=== PATIENT | female | born 1970 | race American Indian/Alaskan Native ===

== ENCOUNTER 2016-04-11 04:38 | Emergency (ER) | payer MEDICARE ==
[2016-04-11] MEDS ORDERED: TYLENOL ONE (04:44)
[2016-04-11] MEDS ORDERED: TYLENOL PO ONE (04:45)
[2016-04-11] MEDS ORDERED: MOTRIN PO ONE (05:54)
--- NOTE | 2016-04-11 06:01 | Emergency Department Report ---
- General Chief Complaint: Upper Respiratory Infection Stated Complaint: FLU SYMPTOMS Time Seen by Provider: 04/11/16 05:49 Source: patient, EMS Mode of arrival: Ambulatory Limitations: No Limitations - History of Present Illness Initial Comments: Patient complains of cough productive of phlegm, runny nose and congestion, fever, throat pain, headache, sharp stomach pain (pointing to epigastric region ) that comes on only when she coughs. States symptoms ongoing for 3 days. Also reports left earache without loss of decreased hearing, drainage. Denies chills, nausea, vomiting, diarrhea, pain, dysuria, urgency, frequency, vaginal pain or discomfort, with, tingling, numbness. Denies chest pain or discomfort, wheezing, SOB. States boyfriend recently released from the hospital from infected tooth and neck infection. Patient has a history of hypertension and hasn't taken her medicine in a while, she said. She denies signs and symptoms of elevated blood pressure. LMP 03/22/16 - Related Data Previous Rx's Medication Instructions Recorded Last Taken Type Ibuprofen [Motrin] 800 mg PO Q8HR PRN #15 tablet 04/11/16 Unknown Rx guaiFENesin/DEXTROMETHORPHAN 10 ml PO Q4HR PRN #1 liquid 04/11/16 Unknown Rx [Diabetic Tussin Dm Max-Str Liq] Allergies Allergy/AdvReac Type Severity Reaction Status Date / Time No Known Allergies Allergy Verified 04/17/15 16:09 ED Review of Systems ROS: Stated complaint: FLU SYMPTOMS Other details as noted in HPI Comment: All other systems reviewed and negative ED Past Medical Hx - Past Medical History Previous Medical History?: Yes Hx Hypertension: Yes Additional medical history: Shoulder Dislocation - Surgical History Past Surgical History?: Yes Additional Surgical History: Right wrist surgery. x2 - Social History Smoking Status: Never Smoker Substance Use Type: None - Medications Home Medications: Home Medications Medication Instructions Recorded Confirmed Last Taken Type Ibuprofen [Motrin] 800 mg PO Q8HR PRN #15 tablet 04/11/16 Unknown Rx guaiFENesin/DEXTROMETHORPHAN 10 ml PO Q4HR PRN #1 liquid 04/11/16 Unknown Rx [Diabetic Tussin Dm Max-Str Liq] ED Physical Exam - General Limitations: No Limitations General appearance: alert, in no apparent distress - Head Head exam: Present: atraumatic, normocephalic - Eye Eye exam: Present: normal appearance, PERRL, EOMI. Absent: scleral icterus, conjunctival injection, periorbital swelling, periorbital tenderness - ENT ENT exam: Present: normal orophraynx, mucous membranes moist, TM's normal bilaterally, normal external ear exam - Neck Neck exam: Present: normal inspection, full ROM, lymphadenopathy (non-tender). Absent: tenderness, meningismus - Respiratory Respiratory exam: Present: normal lung sounds bilaterally. Absent: respiratory distress, wheezes, rales, rhonchi, stridor, chest wall tenderness, accessory muscle use, decreased breath sounds, prolonged expiratory - Cardiovascular Cardiovascular Exam: Present: regular rate, normal rhythm - GI/Abdominal GI/Abdominal exam: Present: soft, normal bowel sounds. Absent: distended, tenderness, guarding, rebound, rigid - Extremities Exam Extremities exam: Present: normal inspection, full ROM, normal capillary refill. Absent: tenderness, pedal edema, joint swelling - Back Exam Back exam: Present: normal inspection, full ROM. Absent: tenderness, CVA tenderness (R), CVA tenderness (L) - Neurological Exam Neurological exam: Present: alert, oriented X3, normal gait, reflexes normal. Absent: motor sensory deficit - Psychiatric Psychiatric exam: Present: normal affect, normal mood - Skin Skin exam: Present: warm, dry, intact, normal color. Absent: rash, cyanosis, diaphoretic, erythema, petechiae, pallor, abrasion, ecchymosis ED Course Vital Signs 04/11/16 04:51 Temperature 101.1 F H Pulse Rate 98 H Respiratory 18 Rate Blood Pressure 153/103 O2 Sat by Pulse 96 Oximetry ED Medical Decision Making - Medical Decision Making 45-year-old female with acute bronchitis and URI. Patient stable. She will be DC'd on appropriate medication (see prescriptions). Patient education education , follow-up/referral, return instructions provided. Patient also instructed to follow-up immediately with her PCP for her elevated blood pressure. She is instructed on the importance of good BP control in preventing heart attack and stroke. She verbalized understanding and is agreeable to plan. Critical care attestation.: If time is entered above; I have spent that time in minutes in the direct care of this critically ill patient, excluding procedure time. ED Disposition Clinical Impression: Bronchitis URI (upper respiratory infection) Qualifiers: URI type: unspecified URI Qualified Code(s): J06.9 - Acute upper respiratory infection, unspecified Disposition: DISCHARGED TO HOME OR SELFCARE Is pt being admited?: No Does the pt Need Aspirin: No Condition: Stable Instructions: Acute Bronchitis (ED), Upper Respiratory Infection (ED) Additional Instructions: Follow instructions for care. Use medications as prescribed. Follow-up with your primary care provider for follow-up. As discussed, follow-up immediately with your primary care provider for your elevated blood pressure and possible restart of your blood pressure medications. As not doing so in a timely manner could result in heart attack or stroke. Return to ED for new or worsening conditions. Prescriptions: guaiFENesin/DEXTROMETHORPHAN [Diabetic Tussin Dm Max-Str Liq] 10 ml PO Q4HR PRN #1 liquid PRN Reason: Cough Ibuprofen [Motrin] 800 mg PO Q8HR PRN #15 tablet PRN Reason: pain/fever Referrals: PRIMARY CARE, [Primary Care Provider] - 2-3 Days [facility] [Outside] - 2-3 Days
[2016-04-11 06:43] VITALS: BP 126/84
== END 2016-04-11 06:44 | disposition home or self-care (01) ==
LOC: ED 04:38
DX: J06.9 Acute upper respiratory infection, unspecified (principal); J40 Bronchitis, not specified as acute or chronic; R51 Headache; R10.13 Epigastric pain; H92.02 Otalgia, left ear; I10 Essential (primary) hypertension
CPT/HCPCS: 99283

== ENCOUNTER 2018-03-06 14:54 | Emergency (ER) | payer MEDICARE ==
[2018-03-06 15:14] VITALS: BP 149/85
[2018-03-06] MEDS ORDERED: DECADRON IM ONE (16:57)
[2018-03-06] MEDS ORDERED: TRIMOX PO ONE (16:57)
--- NOTE | 2018-03-06 17:00 | Emergency Department Report ---
Minor Respiratory - HPI Chief Complaint: Upper Respiratory Infection Stated Complaint: CHECK UP Time Seen by Provider: 03/06/18 16:54 Duration: 3 Days Pain Location: Facial, Throat, Nose, Ear Severity: mild Minor Respiratory: Yes Sore Throat, Yes Able to Tolerate Fluids, No Rhinorrhea, No Ear Pain, No Cough, No Sick Contacts, No Hemoptysis, No Chest Pain, No Shortness of Breath, No Fever Other History: 47 yo comes to ER via EMS with cold like symptoms ED Review of Systems ROS: Stated complaint: CHECK UP Other details as noted in HPI Comment: All other systems reviewed and negative Constitutional: see HPI. denies: chills Eyes: as per HPI. denies: eye pain, eye discharge, vision change ENT: as per HPI, ear pain, throat pain. denies: dental pain, hearing loss Respiratory: see HPI Cardiovascular: denies: palpitations Endocrine: denies: see HPI Gastrointestinal: denies: nausea Genitourinary: denies: urgency Musculoskeletal: denies: back pain Skin: denies: lesions Psychiatric: denies: anxiety ED Past Medical Hx - Past Medical History Previous Medical History?: Yes Hx Hypertension: Yes Additional medical history: Multiple shoulder dislocations - Surgical History Past Surgical History?: Yes Additional Surgical History: . shoulder surgery - Social History Smoking Status: Current Every Day Smoker Substance Use Type: None - Medications Home Medications: Home Medications Medication Instructions Recorded Confirmed Last Taken Type Lisinopril [Zestril] 40 mg PO QDAY 11/29/13 01/01/15 11/18/13 History amLODIPine [Norvasc] 10 mg PO DAILY 11/29/13 01/01/15 11/18/13 History Amoxicillin 500 mg PO BID #20 capsule 03/06/18 Unknown Rx Fluticasone [Flonase] 1 spray NS QDAY #1 bottle 03/06/18 Unknown Rx predniSONE [Deltasone] 20 mg PO DAILY #5 tablet 03/06/18 Unknown Rx Minor Respiratory Exam - Exam General: Vital signs noted. No distress. Alert and acting appropriately. HEENT: Yes Pharyngeal Erythema, Yes Moist Mucous Membranes, No Pharyngeal Exudates, No Rhinorrhea, No Conjuctival Injection, No Frontal Tenderness, No Maxillary Tenderness Ear: Neither TM Bulge, Neither TM Erythema, Neither EAC Pain, Neither EAC Discharge Neck: Yes Supple, No Adenopathy Lungs: Yes Good Air Exchange, No Wheezes, No Ronchi, No Stridor Heart: Yes Regular, No Murmur Abdomen: Yes Normal Bowel Sounds, No Tenderness, No Peritoneal Signs Neurologic: Alert and oriented, no deficits. Musculoskeletal: Unremarkable. ED Course Vital Signs 03/06/18 15:11 Temperature 99.6 F Pulse Rate 90 Respiratory 22 Rate Blood Pressure 149/85 O2 Sat by Pulse 98 Oximetry ED Medical Decision Making - Medical Decision Making non toxic afebrile taking po amublatory - Differential Diagnosis urti Critical care attestation.: If time is entered above; I have spent that time in minutes in the direct care of this critically ill patient, excluding procedure time. ED Disposition Clinical Impression: URTI (acute upper respiratory infection), Sinusitis, Bronchitis Disposition: TO HOME OR SELFCARE Is pt being admited?: No Does the pt Need Aspirin: No Condition: Stable Instructions: Upper Respiratory Infection (ED), Acute Bronchitis (ED) Additional Instructions: REST HYDRATE WELL MOTRIN AND TYLENOL FOR PAIN OR FEVER MEDS ORDERED TODAY FOLLOW UP PCP IN 48 HOURS IF PERSISTS Prescriptions: Amoxicillin 500 mg PO BID #20 capsule Fluticasone [Flonase] 1 spray NS QDAY #1 bottle predniSONE [Deltasone] 20 mg PO DAILY #5 tablet Referrals: PRIMARY CAREMD [Primary Care Provider] - 3-5 Days BJ PEREZ MD [Staff Physician] - 3-5 Days Forms: Work/School Release Form(ED) Time of Disposition: 16:58
[2018-03-06] MEDS ORDERED: IBUPROFEN PO ONE (17:04)
== END 2018-03-06 17:37 | disposition home or self-care (01) ==
LOC: MERGE 14:54 → ED 14:54
DX: J06.9 Acute upper respiratory infection, unspecified (principal); J40 Bronchitis, not specified as acute or chronic; J32.9 Chronic sinusitis, unspecified
CPT/HCPCS: 96372; 99283; J1100

== ENCOUNTER 2018-08-10 11:34 | Emergency (ER) | payer MEDICARE ==
[2018-08-10] MEDS ORDERED: CATAPRES PO ONE (12:33)
[2018-08-10] MEDS ORDERED: FIORICET PO ONE (12:33)
--- NOTE | 2018-08-10 12:36 | Emergency Department Report ---
ED Headache HPI - General Chief Complaint: High BP Stated Complaint: HEADACHE/HYPERTENSION Time Seen by Provider: 08/10/18 12:14 - History of Present Illness Initial Comments: 47-year-old female presents to ED with complaint of headache. Patient reported right temporal headache 2 days. The patient states she checked her blood pressure and it was elevated with systolic BP in the 190s in 200s. Patient reports she has been out of her BP meds 2 months. PCP: Juan Paul Timing/Duration: other (2 days) Quality: moderate Recent Head Trauma: no recent headache/trauma Associated Symptoms: denies: facial pain, fever/chills, loss of consciousness, nausea/vomiting, sinus infection, stiff neck, vision changes Allergies/Adverse Reactions: Allergies No Known Allergies Allergy (Verified 04/17/15 16:09) Home Medications: Ambulatory Orders Ibuprofen [Motrin] 800 mg PO Q8HR PRN #15 tablet 04/11/16 guaiFENesin/DEXTROMETHORPHAN [Diabetic Tussin Dm Max-Str Liq] 10 ml PO Q4HR PRN #1 liquid 04/11/16 hydroCHLOROthiazide [HCTZ] 25 mg PO QDAY #30 tablet 08/10/18 ED Review of Systems ROS: Stated complaint: HEADACHE/HYPERTENSION Other details as noted in HPI Comment: All other systems reviewed and negative Constitutional: denies: chills, fever Respiratory: denies: shortness of breath Cardiovascular: denies: chest pain Gastrointestinal: denies: nausea, vomiting Neurological: headache. denies: weakness, numbness, paresthesias, abnormal gait ED Past Medical Hx - Past Medical History Previous Medical History?: Yes Hx Hypertension: Yes Additional medical history: Shoulder Dislocation - Surgical History Past Surgical History?: Yes Additional Surgical History: Right wrist surgery. x2 - Social History Smoking Status: Current Every Day Smoker Substance Use Type: None - Medications Home Medications: Home Medications Medication Instructions Recorded Confirmed Last Taken Type Ibuprofen [Motrin] 800 mg PO Q8HR PRN #15 tablet 04/11/16 Unknown Rx guaiFENesin/DEXTROMETHORPHAN 10 ml PO Q4HR PRN #1 liquid 04/11/16 Unknown Rx [Diabetic Tussin Dm Max-Str Liq] hydroCHLOROthiazide [HCTZ] 25 mg PO QDAY #30 tablet 08/10/18 Unknown Rx ED Physical Exam - General Limitations: No Limitations General appearance: alert, in no apparent distress - Head Head exam: Present: atraumatic, normocephalic - Eye Eye exam: Present: normal appearance, PERRL, EOMI - ENT ENT exam: Present: mucous membranes moist - Neck Neck exam: Present: normal inspection, full ROM. Absent: tenderness, meningismus - Respiratory Respiratory exam: Present: normal lung sounds bilaterally. Absent: respiratory distress - Cardiovascular Cardiovascular Exam: Present: regular rate, normal rhythm - GI/Abdominal GI/Abdominal exam: Present: soft. Absent: distended, tenderness - Extremities Exam Extremities exam: Present: normal inspection - Neurological Exam Neurological exam: Present: alert, oriented X3, CN II-XII intact. Absent: motor sensory deficit - Psychiatric Psychiatric exam: Present: normal affect, normal mood - Skin Skin exam: Present: warm, dry, intact, normal color ED Course Vital Signs 08/10/18 08/10/18 08/10/18 11:59 12:01 12:44 Temperature 98.4 F Pulse Rate 71 75 Respiratory 18 18 Rate Blood Pressure 179/110 Blood Pressure 191/107 [Right] O2 Sat by Pulse 100 100 Oximetry ED Medical Decision Making - Medical Decision Making - clonidine, fioricet given - RICKETTS and BP improved - no neuro deficits - unable to recall what medication previously took for BP, will prescribe HCTZ - outpt f/u advised Critical care attestation.: If time is entered above; I have spent that time in minutes in the direct care of this critically ill patient, excluding procedure time. ED Disposition Clinical Impression: Hypertension, Acute headache Disposition: DC- TO HOME OR SELFCARE Is pt being admited?: No Condition: Stable Instructions: Hypertension (ED) Prescriptions: hydroCHLOROthiazide [HCTZ] 25 mg PO QDAY #30 tablet Referrals: [facility] [Provider Group] - 3-5 Days Time of Disposition: 14:00
[2018-08-10 14:29] VITALS: BP 140/90
== END 2018-08-10 14:10 | disposition home or self-care (01) ==
LOC: ED 11:34
DX: I10 Essential (primary) hypertension (principal); R51 Headache; F17.200 Nicotine dependence, unspecified, uncomplicated
CPT/HCPCS: 99282

== ENCOUNTER 2019-01-14 23:18 | Emergency (ER) | payer MEDICARE ==
--- NOTE | 2019-01-15 00:51 | Emergency Department Report ---
- General Chief Complaint: Upper Respiratory Infection Stated Complaint: VERÓNICA Time Seen by Provider: 01/15/19 00:26 Source: EMS Mode of arrival: Stretcher Limitations: No Limitations - History of Present Illness Initial Comments: Patient is a 48-year-old female presents emergency room with complaints of URI symptoms that began a week ago. She has associated dry persistent cough, itchy dry throat, rhinorrhea, congestion. She denies any ear pain, productive cough, shortness of breath, any other symptoms. She states that she just started taking DayQuil today. She states she has tried drinking warm tea and taking Gould's [id number]. She denies any fever. She states she has a past medical history of hypertension and ran out of her medication but states she is planning to see her primary care doctor this week to have refills completed. she denies any allergies medications - Related Data Home Medications Medication Instructions Recorded Confirmed Last Taken Lisinopril [Zestril] 40 mg PO QDAY 11/29/13 01/01/15 11/18/13 amLODIPine [Norvasc] 10 mg PO DAILY 11/29/13 01/01/15 11/18/13 Previous Rx's Medication Instructions Recorded Last Taken Type Ibuprofen [Motrin] 800 mg PO Q8HR PRN #15 tablet 04/11/16 Unknown Rx guaiFENesin/DEXTROMETHORPHAN 10 ml PO Q4HR PRN #1 liquid 04/11/16 Unknown Rx [Diabetic Tussin Dm Max-Str Liq] Amoxicillin 500 mg PO BID #20 capsule 03/06/18 Unknown Rx Fluticasone [Flonase] 1 spray NS QDAY #1 bottle 03/06/18 Unknown Rx predniSONE [Deltasone] 20 mg PO DAILY #5 tablet 03/06/18 Unknown Rx hydroCHLOROthiazide [HCTZ] 25 mg PO QDAY #30 tablet 08/10/18 Unknown Rx Cetirizine HCl [Zyrtec 10mg tab] 10 mg PO DAILY #14 tablet 01/15/19 Unknown Rx Fluticasone [Flonase] 1 spray NS QDAY #1 bottle 01/15/19 Unknown Rx Nystas/Diphen/Xyl Visc/Mylanta 30 ml MM TID PRN #480 ml 01/15/19 Unknown Rx [Magic Mouthwash] guaiFENesin/DEXTROMETHORPHAN 1 each PO Q8HR PRN #14 capsule 01/15/19 Unknown Rx [Coricidin Hbp Chest Damion-Cough] Allergies Allergy/AdvReac Type Severity Reaction Status Date / Time No Known Allergies Allergy Verified 09/21/18 08:18 ED Review of Systems ROS: Stated complaint: VERÓNICA Other details as noted in HPI Comment: All other systems reviewed and negative ED Past Medical Hx - Past Medical History Previous Medical History?: Yes Hx Hypertension: Yes Additional medical history: Multiple shoulder dislocations - Surgical History Past Surgical History?: Yes Additional Surgical History: . shoulder surgery - Social History Smoking Status: Never Smoker Substance Use Type: None - Medications Home Medications: Home Medications Medication Instructions Recorded Confirmed Last Taken Type Lisinopril [Zestril] 40 mg PO QDAY 11/29/13 01/01/15 11/18/13 History amLODIPine [Norvasc] 10 mg PO DAILY 11/29/13 01/01/15 11/18/13 History Ibuprofen [Motrin] 800 mg PO Q8HR PRN #15 tablet 04/11/16 Unknown Rx guaiFENesin/DEXTROMETHORPHAN 10 ml PO Q4HR PRN #1 liquid 04/11/16 Unknown Rx [Diabetic Tussin Dm Max-Str Liq] Amoxicillin 500 mg PO BID #20 capsule 03/06/18 Unknown Rx Fluticasone [Flonase] 1 spray NS QDAY #1 bottle 03/06/18 Unknown Rx predniSONE [Deltasone] 20 mg PO DAILY #5 tablet 03/06/18 Unknown Rx hydroCHLOROthiazide [HCTZ] 25 mg PO QDAY #30 tablet 08/10/18 Unknown Rx Cetirizine HCl [Zyrtec 10mg tab] 10 mg PO DAILY #14 tablet 01/15/19 Unknown Rx Fluticasone [Flonase] 1 spray NS QDAY #1 bottle 01/15/19 Unknown Rx Nystas/Diphen/Xyl Visc/Mylanta 30 ml MM TID PRN #480 ml 01/15/19 Unknown Rx [Magic Mouthwash] guaiFENesin/DEXTROMETHORPHAN 1 each PO Q8HR PRN #14 capsule 01/15/19 Unknown Rx [Coricidin Hbp Chest Damion-Cough] ED Physical Exam - General Limitations: No Limitations General appearance: alert, in no apparent distress - Head Head exam: Present: atraumatic, normocephalic - Eye Eye exam: Present: normal appearance - ENT ENT exam: Present: normal orophraynx, mucous membranes moist, TM's normal bilaterally, normal external ear exam, other (pale boggy turbinates with clear nasal discharge) - Respiratory Respiratory exam: Present: normal lung sounds bilaterally. Absent: respiratory distress, wheezes, rales, rhonchi, stridor, chest wall tenderness, accessory muscle use, decreased breath sounds, prolonged expiratory - Cardiovascular Cardiovascular Exam: Present: regular rate, normal rhythm, normal heart sounds. Absent: systolic murmur, diastolic murmur, rubs, gallop - Neurological Exam Neurological exam: Present: alert, oriented X3 - Psychiatric Psychiatric exam: Present: normal affect, normal mood - Skin Skin exam: Present: warm, dry, intact ED Course Vital Signs 01/14/19 01/14/19 01/15/19 23:26 23:37 01:15 Temperature 98.8 F 98.8 F Pulse Rate 91 H 83 Respiratory 18 18 Rate Blood Pressure 180/108 180/108 211/121 O2 Sat by Pulse 100 Oximetry ED Medical Decision Making - Medical Decision Making Patient is a 48-year-old female presents emergency room with complaints of URI symptoms that began a week ago. She has associated dry persistent cough, itchy dry throat, rhinorrhea, congestion. She denies any ear pain, productive cough, shortness of breath, any other symptoms. She states that she just started taking DayQuil today. She states she has tried drinking warm tea and taking Gould's [id number]. She denies any fever. She states she has a past medical history of hypertension and ran out of her medication but states she is planning to see her primary care doctor this week to have refills completed. she denies any allergies medications. intial vitals with elevated BP, otherwise st able. on exam: pale boggy turbinates with clear nasal discharge, breath sounds are clear bilaterally without wheezes rales or rhonchi. Symptoms and examination consistent with viral URI. Discussed supportive care with patient. Patient given prescriptions for symptomatic relief. advised pt to Please take medication as prescribed. May use a humidifier, drink warm tea, eat warm soup broth, do warm saltwater gargles. Follow-up with a primary care doctor in the next 2-3 days. Please discuss with your primary care doctor the elevation in your blood pressure and get your medications refilled by your primary care physician. take your blood pressure three times a day. eat a low sodium diet, incorporate daily exercise. Return to the emergency room for any new or worsening symptoms. I was informed by social worker psychiatric that on patients discharge vitals that her blood pressure was elevated to 211/121. I ordered 10 mg of amlodipine and advised social worker psychiatric to repeat vitals. I was advised by social worker psychiatric that after he gave the patient medication she stated that she could not wait here and she had to go home. Logistics Administrator had patient signed AMA form and discussed risk associated with leaving AGAINST MEDICAL ADVICE. - Differential Diagnosis PNA, URI, viral syndrome, influenza, sinusitis, otitis, strep pharyngitis Critical care attestation.: If time is entered above; I have spent that time in minutes in the direct care of this critically ill patient, excluding procedure time. ED Disposition Clinical Impression: Upper respiratory infection Qualifiers: URI type: unspecified URI Qualified Code(s): J06.9 - Acute upper respiratory infection, unspecified Disposition: OP ADMIT IP TO THIS HOSP Is pt being admited?: No Does the pt Need Aspirin: No Condition: Stable Instructions: Upper Respiratory Infection (ED) Additional Instructions: Please take medication as prescribed. May use a humidifier, drink warm tea, eat warm soup broth, do warm saltwater gargles. Follow-up with a primary care doctor in the next 2-3 days. Please discuss with your primary care doctor the elevation in your blood pressure and get your medications refilled by your primary care physician. take your blood pressure three times a day. eat a low sodium diet, incorporate daily exercise. Return to the emergency room for any new or worsening symptoms. Prescriptions: guaiFENesin/DEXTROMETHORPHAN [Coricidin Hbp Chest Damion-Cough] 1 each PO Q8HR PRN #14 capsule PRN Reason: cough Fluticasone [Flonase] 1 spray NS QDAY #1 bottle Nystas/Diphen/Xyl Visc/Mylanta [Magic Mouthwash] 30 ml MM TID PRN #480 ml PRN Reason: sore throat Cetirizine HCl [Zyrtec 10mg tab] 10 mg PO DAILY #14 tablet Referrals: your, primary care doctor [Other] - 2-3 Days Forms: AMA Form, Accompanied Note, Work/School Release Form(ED) Time of Disposition: 00:44 Print Language: ESTONIAN
[2019-01-15] MEDS ORDERED: amLODIPine 10 MG TAB ONE (01:13)
[2019-01-15] MEDS ORDERED: amLODIPine 5 MG TAB PO ONE (01:13)
[2019-01-15 01:15] VITALS: BP 211/121
== END 2019-01-15 01:22 | disposition admitted as inpatient to this hospital (09) ==
LOC: ED 23:18
DX: J06.9 Acute upper respiratory infection, unspecified (principal); Z79.899 Other long term (current) drug therapy; Z79.1 Long term (current) use of non-steroidal anti-inflammatories (NSAID)
CPT/HCPCS: 99283

== ENCOUNTER 2019-04-08 15:26 | Outpatient (CLI) | payer MEDICARE ==
--- NOTE | 2019-04-08 17:12 | XRay Report ---
Right knee 2 views INDICATION: Right knee pain following injury IMPRESSION: Moderate to severe tricompartmental degenerative changes of the right knee with small kne e effusion. Signer Name: Travis Murguia MD Signed: 04/08/2019 5:08 PM Workstation Name: [id number]
== END 2019-04-08 15:27 | disposition home or self-care (01) ==
LOC: XRAY 15:26
PROVIDERS: ATTEND Orthopaedic Surgery
DX: M17.11 Unilateral primary osteoarthritis, right knee (principal); M25.461 Effusion, right knee

== ENCOUNTER 2019-11-07 08:56 | Day surgery (SDC) | payer MEDICARE ==
[~2019-11-07 08:56] MED LIST: ceFAZolin/STERILE WATER 2 GM/20 ML SYRINGE IV NR
[2019-11-07] MEDS ORDERED: BACTERIOSTATIC SODIUM CHLORIDE 0.9% 30 ML VIAL INFILTRATI ONE (09:23)
--- NOTE | 2019-11-07 09:36 | Anesthesia Day of Surgery ---
Anesthesia Day of Surgery - Day of Surgery Patient Examined: Yes Patient H&P Reviewed: Yes Patient is NPO: Yes
--- NOTE | 2019-11-07 09:38 | Anesthesia Consultation ---
Anesthesia Consult and Med Hx Date of service: 11/07/19 - Airway Anesthetic Teeth Evaluation: Good ROM Head & Neck: Adequate Mental/Hyoid Distance: Adequate Mallampati Class: Class III Intubation Access Assessment: Probably Good - Pre-Operative Health Status ASA Pre-Surgery Classification: ASA3 Proposed Anesthetic Plan: General - Pulmonary Hx Smoking: Yes (CIGARETTES 1 P Q 2-3 WEEKS) Hx Asthma: No (+2FS) COPD: No Hx Pneumonia: No Hx Sleep Apnea: No (JENNIFER PRE SCREEN HIGH RISK) - Cardiovascular System Hx Hypertension: Yes Hx Heart Attack/AMI: No Hx Pacemaker: No Hx Internal Defibrillator: No Hx Heart Murmur: No - Central Nervous System Hx Back Pain: Yes (LOWER) Hx Psychiatric Problems: Yes (CLAUSTROPHOBIC/Anxiety) - Gastrointestinal Hx Ulcer: No - Endocrine Hx End Stage Renal Disease: No Hx Cirrhosis: No Hx Liver Disease: No - Hematic Hx Anemia: Yes Hx Sickle Cell Disease: No - Other Systems Hx Alcohol Use: No Hx Substance Use: No Hx Cancer: No Hx Obesity: Yes
[2019-11-07] MEDS ORDERED: LACTATED RINGERS 1,000 ML IV SCH (10:00)
[2019-11-07] MEDS ORDERED: HYDROmorphone 1 MG/1 ML INJ IV PRN ×2 (10:00)
[2019-11-07] MEDS ORDERED: ONDANSETRON 4 MG/2 ML INJ IV PRN (10:00)
[2019-11-07] MEDS ORDERED: MAGNESIUM OXIDE 400 MG TAB PO SCH (10:00)
[2019-11-07] MEDS ORDERED: CELECOXIB 200 MG CAP PO NR (10:00)
[2019-11-07] MEDS ORDERED: amLODIPine 10 MG TAB PO SCH (10:00)
[2019-11-07] MEDS ORDERED: MIDAZOLAM 2 MG/2 ML INJ IV NR (10:00)
[2019-11-07] MEDS ORDERED: ACETAMINOPHEN 500 MG TAB PO SCH (10:00)
[2019-11-07] MEDS ORDERED: LIDOCAINE MPF (2%) 20 MG/1 ML VIAL 5 ML ONE ×2 (11:17→12:34)
[2019-11-07] MEDS ORDERED: propofoL 200 MG/20 ML VIAL IV ONE ×2 (11:17→12:13)
[2019-11-07] MEDS ORDERED: HYDROmorphone 1 MG/1 ML INJ ONE (11:18)
[2019-11-07] MEDS ORDERED: methylPREDNISolone ACETATE 40 MG/1 ML INJ ONE (11:55)
[2019-11-07] MEDS ORDERED: BUPIVACAINE/PF (0.5%) 5 MG/1 ML 30 ML VIAL INFILTRATI ONE (11:55)
[2019-11-07] MEDS ORDERED: SUCCINYLCHOLINE CHLORIDE 200 MG/10 ML INJ MDV ONE (12:34)
[2019-11-07] MEDS ORDERED: ROCURONIUM 50 MG/5 ML INJ IV ONE (12:34)
[2019-11-07] MEDS ORDERED: SODIUM CHLORIDE 0.9% IRRIG SOLN 3000 ML IR ONE (12:52)
[2019-11-07] MEDS ORDERED: methylPREDNISolone ACETATE 80 MG/1 ML INJ INTRA-ARTI ONE (13:12)
[2019-11-07] MEDS ORDERED: BUPIVACAINE-EPINEPHRINE/PF 0.5%-1:200,000 (10 ML) VIAL IJ ONE (13:12)
[2019-11-07] MEDS ORDERED: KETOROLAC 30 MG/1 ML INJ ONE (13:15)
[2019-11-07] MEDS ORDERED: ONDANSETRON 4 MG/2 ML INJ ONE (13:15)
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
[2019-11-07 16:12] VITALS: BP 140/72
--- NOTE | 2019-11-07 16:43 | Post Anesthesia Evaluation ---
- Post Anesthesia Evaluation Patient Participated: Yes Airway Patent: Yes Stable Respiratory Function: Yes Nausea/Vomiting: No Temp > 96.8F: Yes Pain Manageable: Yes Adequeate Hydration: Yes Anesthesia Complications: No Block Receding Appropriately: Not Applicable Patient on Ventilator: No
== END 2019-11-07 16:10 | disposition home or self-care (01) ==
LOC: OR 08:56
PROVIDERS: ATTEND Orthopaedic Surgery
DX: M25.561 Pain in right knee (principal); M94.262 Chondromalacia, left knee; I10 Essential (primary) hypertension; E66.9 Obesity, unspecified; M19.90 Unspecified osteoarthritis, unspecified site; F17.210 Nicotine dependence, cigarettes, uncomplicated; F41.9 Anxiety disorder, unspecified; Z98.891 History of uterine scar from previous surgery; Z87.440 Personal history of urinary (tract) infections; Z68.38 Body mass index [BMI] 38.0-38.9, adult; Z98.890 Other specified postprocedural states; Z86.2 Personal history of diseases of the blood and blood-forming organs and certain disorders involving the immune mechanism
CPT/HCPCS: 29879; 36415; 81025; 84132; A4217; J0330; J0690; J1040; J1170; J1885; J2250; J2405; J2704; J7120; J1030

== ENCOUNTER 2020-05-07 23:56 | Emergency (ER) | payer MEDICARE ==
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
[2020-05-08 00:53] LABS: Hematocrit 33.9 % (30.3-42.9); Hemoglobin 11.2 gm/dl (10.1-14.3); Mean Corpuscular HGB Conc 33 % (30-34); Mean Corpuscular Volume 82 fl (79-97); Platelet Count 373 K/mm3 (140-440); Red Blood Count 4.16 M/mm3 (3.65-5.03)
[2020-05-08 00:56] LABS: Red Cell Distribution Width 25.6 % (13.2-15.2)
[2020-05-08 00:58] LABS: Basophils # (Auto) 0.1 K/mm3 (0.0-0.1); Basophils % (Auto) 1.3 % (0.0-1.8); Eosinophils # (Auto) 0.1 K/mm3 (0.0-0.4); Eosinophils % (Auto) 1.5 % (0.0-4.3); Lymphocytes # (Auto) 1.4 K/mm3 (1.2-5.4); Lymphocytes % (Auto) 20.3 % (13.4-35.0); Monocytes # (Auto) 0.5 K/mm3 (0.0-0.8); Monocytes % (Auto) 7.4 % (0.0-7.3)
[2020-05-08 01:02] LABS: INR 0.91 (0.87-1.13)
[2020-05-08 01:03] LABS: Partial Thromboplastin Time 23.4 Sec. (24.2-36.6)
[2020-05-08 01:12] LABS: Alanine Aminotransferase 16 units/L (7-56); Albumin 4.4 g/dL (3.9-5); BUN/Creatinine Ratio 10; Blood Urea Nitrogen 10 mg/dL (7-17); Hemolysis Index 24
[2020-05-08] MEDS ORDERED: ONDANSETRON 4 MG/2 ML INJ IV ONE (01:19)
[2020-05-08] MEDS ORDERED: MORPHINE 4 MG/1 ML INJ IV ONE (01:19)
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
[2020-05-08 06:31] VITALS: BP 155/97
== END 2020-05-08 04:40 | disposition home or self-care (01) ==
LOC: ED 23:56
DX: S39.011A Strain of muscle, fascia and tendon of abdomen, initial encounter (principal); S20.20XA Contusion of thorax, unspecified, initial encounter; M62.830 Muscle spasm of back; I10 Essential (primary) hypertension; M19.91 Primary osteoarthritis, unspecified site; G43.909 Migraine, unspecified, not intractable, without status migrainosus; F17.200 Nicotine dependence, unspecified, uncomplicated; Z98.890 Other specified postprocedural states; Z79.1 Long term (current) use of non-steroidal anti-inflammatories (NSAID); Z79.899 Other long term (current) drug therapy; V49.59XA Passenger injured in collision with other motor vehicles in traffic accident, initial encounter; W22.10XA Striking against or struck by unspecified automobile airbag, initial encounter; Y93.89 Activity, other specified; Y92.410 Unspecified street and highway as the place of occurrence of the external cause; Y99.8 Other external cause status
CPT/HCPCS: 36415; 70450; 71260; 72125; 72128; 74177; 80053; 84703; 85025; 85610; 85730; 96374; 96375; 99284; J2270; J2405; Q9967

== ENCOUNTER 2020-07-08 21:39 | Emergency (ER) | payer MEDICARE, OTHER ==
[2020-07-08 22:34] VITALS: BP 185/104
== END 2020-07-09 04:15 | disposition home or self-care (01) ==
LOC: ED 21:39
DX: M25.461 Effusion, right knee (principal); K21.9 Gastro-esophageal reflux disease without esophagitis; M19.90 Unspecified osteoarthritis, unspecified site; F17.200 Nicotine dependence, unspecified, uncomplicated; F12.10 Cannabis abuse, uncomplicated; Z79.899 Other long term (current) drug therapy

== ENCOUNTER 2021-02-11 13:16 | Emergency (ER) | payer MEDICARE ==
[2021-02-11] MEDS ORDERED: KETOROLAC 30 MG/1 ML INJ IV ONE (14:21)
[2021-02-11] MEDS ORDERED: dexAMETHasone 20 MG/5 ML VIAL IM ONE (14:21)
[2021-02-11] MEDS ORDERED: CYCLOBENZAPRINE 10 MG TAB PO ONE (14:22)
--- NOTE | 2021-02-11 14:25 | Emergency Department Report ---
ED Extremity Problem HPI - General Chief complaint: Extremity Problem,Nontraumatic Stated complaint: LEFT LEG PAIN Time Seen by Provider: 02/11/21 13:31 Source: patient, EMS Mode of arrival: Stretcher Limitations: No Limitations - History of Present Illness Initial comments: 50-year-old female with a past medical history of hypertension presents to the E R today with complaints of left hip/proximal thigh pain. Patient states that the pain started gradually this morning. She states that she was walking to the bathroom when the pain started. She does not recall any injury. She denies any physical strenuous activity. She states that the pain is worse when she moves her leg and when she tries to ambulate and walk. She states that she took Advil which does help the pain but it comes right back. She reports no lower back pain, abdominal pain, bowel or bladder incontinence, leg swelling or calf pain, erythema or bruising. She does have known arthritis to her right knee, but denies any known issues with her back or hips. She reports no chest pain or shortness of breath. MD Complaint: extremity pain -: Gradual, This morning Severity scale (0 -10): 10 - Related Data Home Medications Medication Instructions Recorded Confirmed Last Taken Vitamin C 1,000 mg PO DAILY 10/28/19 11/02/20 11/06/19 Previous Rx's Medication Instructions Recorded Last Taken Type Ascorbic Acid [Vitamin C] 1,000 mg PO BID #60 tablet 11/08/20 Unknown Rx Cholecalciferol (Vitamin D3) 5,000 unit PO DAILY #30 tablet 11/08/20 Unknown Rx [Vitamin D3] Losartan [Cozaar] 100 mg PO QDAY #30 tablet 11/08/20 Unknown Rx Zinc Sulfate 220 mg PO BID #60 capsule 11/08/20 Unknown Rx amLODIPine 10 mg PO DAILY #30 11/08/20 Unknown Rx cloNIDine-TTS PATCH [Catapres-Tts 0.2 mg TD Tu@1200 #30 patch 11/08/20 Unknown Rx 0.2mg Patch] guaiFENesin ER [Mucinex ER] 600 mg PO BID #20 tablet 11/08/20 Unknown Rx hydroCHLOROthiazide [HCTZ] 25 mg PO QDAY #30 tablet 11/08/20 Unknown Rx Ketorolac [Toradol] 10 mg PO Q6H PRN #20 tablet 02/11/21 Unknown Rx Tramadol HCl/Acetaminophen 1 each PO Q4HR #12 tablet 02/11/21 Unknown Rx [Ultracet Tablet] Allergies Allergy/AdvReac Type Severity Reaction Status Date / Time No Known Allergies Allergy Verified 09/21/18 08:18 ED Review of Systems ROS: Stated complaint: LEFT LEG PAIN Other details as noted in HPI Comment: All other systems reviewed and negative Constitutional: denies: chills, fever Eyes: denies: eye pain, eye discharge, vision change ENT: denies: ear pain, throat pain, dental pain, hearing loss, epistaxis, congestion Respiratory: denies: cough, shortness of breath, SOB with exertion, SOB at rest, wheezing Cardiovascular: denies: chest pain, palpitations, dyspnea on exertion, edema, syncope, paroxysmal nocturnal dyspnea Gastrointestinal: denies: abdominal pain, nausea, vomiting, diarrhea, constipation, hematemesis, hematochezia Genitourinary: denies: urgency, dysuria, frequency, hematuria, discharge, abnormal menses, dyspareunia Musculoskeletal: arthralgia, myalgia. denies: back pain, joint swelling Skin: denies: rash, lesions, change in color, change in hair/nails, pruritus Neurological: abnormal gait. denies: headache, weakness, numbness, paresthesias, confusion, vertigo Psychiatric: denies: anxiety, depression, visual hallucinations, homicidal thoughts, suicidal thoughts Hematological/Lymphatic: denies: easy bleeding, easy bruising, swollen glands ED Past Medical Hx - Past Medical History Previous Medical History?: Yes Hx Hypertension: Yes Hx Heart Attack/AMI: No Hx Congestive Heart Failure: No Hx Diabetes: No Hx GERD: No Hx Liver Disease: No Hx Sickle Cell Disease: No Hx Arthritis: Yes (RT KNEE PAIN ) Hx Headaches / Migraines: Yes Hx Kidney Stones: No Hx Asthma: (+2FS) Hx COPD: No Hx Tuberculosis: No Hx HIV: No Additional medical history: Multiple shoulder dislocations - Surgical History Hx Pacemaker: No Hx Internal Defibrillator: No Additional Surgical History: . shoulder surgery - Social History Smoking Status: Former Smoker - Medications Home Medications: Home Medications Medication Instructions Recorded Confirmed Last Taken Type Vitamin C 1,000 mg PO DAILY 10/28/19 11/02/20 11/06/19 History Ascorbic Acid [Vitamin C] 1,000 mg PO BID #60 tablet 09/12/21 Unknown Rx Cholecalciferol (Vitamin D3) 5,000 unit PO DAILY #30 tablet 11/08/20 Unknown Rx [Vitamin D3] Losartan [Cozaar] 100 mg PO QDAY #30 tablet 11/08/20 Unknown Rx Zinc Sulfate 220 mg PO BID #60 capsule 11/08/20 Unknown Rx amLODIPine 10 mg PO DAILY #30 11/08/20 Unknown Rx cloNIDine-TTS PATCH [Catapres-Tts 0.2 mg TD Tu@1200 #30 patch 11/08/20 Unknown Rx 0.2mg Patch] guaiFENesin ER [Mucinex ER] 600 mg PO BID #20 tablet 11/08/20 Unknown Rx hydroCHLOROthiazide [HCTZ] 25 mg PO QDAY #30 tablet 11/08/20 Unknown Rx Ketorolac [Toradol] 10 mg PO Q6H PRN #20 tablet 02/11/21 Unknown Rx Tramadol HCl/Acetaminophen 1 each PO Q4HR #12 tablet 02/11/21 Unknown Rx [Ultracet Tablet] ED Physical Exam - General Limitations: No Limitations General appearance: alert, in distress (patient appears uncomfortable ) - Head Head exam: Present: atraumatic, normocephalic - Eye Eye exam: Present: normal appearance, PERRL, EOMI Pupils: Present: normal accommodation - Neck Neck exam: Present: normal inspection, full ROM. Absent: meningismus - Respiratory Respiratory exam: Present: normal lung sounds bilaterally. Absent: respiratory distress, wheezes, rales, rhonchi - Cardiovascular Cardiovascular Exam: Absent: regular rate, normal rhythm, normal heart sounds - GI/Abdominal GI/Abdominal exam: Present: soft. Absent: distended, tenderness, guarding - Expanded Lower Extremity Exam Left Hip exam: Present: full ROM (Reduced due to pain), tenderness (Lateral left hip). Absent: swelling, abrasion, laceration, ecchymosis, deformity, crepidus, dislocation, erythema, external rotation, internal rotation, shortening, pelvic stability Upper Leg exam: Present: normal inspection, tenderness (Proximal anterior thigh). Absent: swelling, abrasion, laceration, ecchymosis, deformity, crepidus, dislocation, erythema Neuro vascular tendon exam: Present: no vascular compromise. Absent: pulse deficit, abnormal cap refill, motor deficit, sensory deficit, tendon deficit Gait: Positive: observed and limited by pain - Neurological Exam Neurological exam: Present: alert, oriented X3, CN II-XII intact - Psychiatric Psychiatric exam: Present: normal affect, normal mood ED Course Vital Signs 02/11/21 02/11/21 13:23 15:53 Temperature 98.9 F Pulse Rate 80 Respiratory 16 Rate Blood Pressure 176/120 146/71 [Right] O2 Sat by Pulse 99 Oximetry ED Medical Decision Making - Medical Decision Making Patient presented with pain to left hip/proximal thigh. Onset this morning while walking to the bathroom. She has suffered no trauma. Is not toxic or ill-appearing. She has no focal deficits on exam. No history and physical exam does not suggest cellulitis, septic joint, DVT, acute arterial occlusion, cauda equina, or any other emergent conditions warranting testing at this time. Pain could be related to muscle spasm/strain. 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 Patient blood pressure was noted to be elevated at triage, she did take her blood pressure medication this morning, but elevation could be be because she appears to be uncomfortable and in pain. Repeat blood pressure improved. Remainder vitals stable. Patient was stable at time of discharge. Critical care attestation.: If time is entered above; I have spent that time in minutes in the direct care of this critically ill patient, excluding procedure time. ED Disposition Clinical Impression: Left hip pain Disposition: HOME / SELF CARE / HOMELESS Is pt being admited?: No Does the pt Need Aspirin: No Condition: Stable Instructions: Hip Pain Additional Instructions: I recommend that you take Toradol and the Ultracet as prescribed to help your pain. You can also use [id number] muscle rubs. I do recommend following up with your talent sourcing specialist in about a week if your symptoms persist. Return to the ER if your symptoms worsens in any way. Prescriptions: Ketorolac [Toradol] 10 mg PO Q6H PRN #20 tablet PRN Reason: Pain Tramadol HCl/Acetaminophen [Ultracet Tablet] 1 each PO Q4HR #12 tablet Referrals: PRIMARY CARE, [Primary Care Provider] - 3-5 Days Forms: Work/School Release Form(ED) Time of Disposition: 15:19
[2021-02-11] MEDS ORDERED: dexAMETHasone 20 MG/5 ML VIAL IV ONE (14:29)
[2021-02-11 15:54] VITALS: BP 146/71
== END 2021-02-11 15:56 | disposition home or self-care (01) ==
LOC: ED 13:16
DX: M25.552 Pain in left hip (principal); I10 Essential (primary) hypertension; Z87.891 Personal history of nicotine dependence
CPT/HCPCS: 96374; 96375; 99283; J1100; J1885

== ENCOUNTER 2021-04-01 15:01 | Emergency (ER) | payer MEDICARE ==
[2021-04-01 15:05] VITALS: BP 131/82
--- NOTE | 2021-04-01 16:03 | XRay Report ---
CHEST 2 VIEWS INDICATION / CLINICAL INFORMATION: Chest pain. COMPARISON: 11/02/20. FINDINGS: SUPPORT DEVICES: None. HEART / MEDIASTINUM: The heart size is borderline with a left ventricular configuration. There is mil d aortic tortuosity without aneurysm. LUNGS / PLEURA: No significant pulmonary or pleural abnormality. No pneumothorax. ADDITIONAL FINDINGS: No significant additional findings. IMPRESSION: No acute findings. Signer Name: Norris Ochoa MD Signed: 04/01/2021 3:58 PM Workstation Name: [id number]
[2021-04-01] MEDS ORDERED: ASPIRIN 325 MG TAB PO ONE (16:56)
--- NOTE | 2021-04-01 16:57 | Emergency Department Report ---
HPI - General Chief Complaint: Chest Pain Time Seen by Provider: 04/01/21 16:39 - HPI HPI: 50-year-old female with history of hypertension and osteoarthritis presents complaining of left sided chest pain which occurred earlier today. The patient states that earlier today she was in the shower when all of a sudden she began to feel sharp pain in the left side of her chest. The pain was nonradiating and associated with slight shortness of breath but she denies any associated nausea or vomiting, palpitations, sweating, or any other associated symptoms. She says that the pain lasted for approximately 30 minutes and resolved when she got into the ambulance. She was not given any medications in the ambulance. She also states that for the past several months she has had intermittent swelling of her right knee which involves the leg and makes it difficult to ambulate. She states she is seeing an orthopedic doctor for this issue and it has been ongoing. ED Past Medical Hx - Past Medical History Previous Medical History?: Yes Hx Hypertension: Yes Hx Heart Attack/AMI: No Hx Congestive Heart Failure: No Hx Diabetes: No Hx GERD: No Hx Liver Disease: No Hx Sickle Cell Disease: No Hx Arthritis: Yes (RT KNEE PAIN ) Hx Headaches / Migraines: Yes Hx Kidney Stones: No Hx Asthma: (+2FS) Hx COPD: No Hx Tuberculosis: No Hx HIV: No Additional medical history: Multiple shoulder dislocations - Surgical History Hx Pacemaker: No Hx Internal Defibrillator: No Additional Surgical History: . shoulder surgery - Social History Smoking Status: Former Smoker - Medications Home Medications: Home Medications Medication Instructions Recorded Confirmed Last Taken Type Vitamin C 1,000 mg PO DAILY 10/28/19 11/02/20 11/06/19 History Ascorbic Acid [Vitamin C] 1,000 mg PO BID #60 tablet 11/08/20 Unknown Rx Cholecalciferol (Vitamin D3) 5,000 unit PO DAILY #30 tablet 11/08/20 Unknown Rx [Vitamin D3] Losartan [Cozaar] 100 mg PO QDAY #30 tablet 11/08/20 Unknown Rx Zinc Sulfate 220 mg PO BID #60 capsule 11/08/20 Unknown Rx amLODIPine 10 mg PO DAILY #30 11/08/20 Unknown Rx cloNIDine-TTS PATCH [Catapres-Tts 0.2 mg TD Tu@1200 #30 patch 11/08/20 Unknown Rx 0.2mg Patch] guaiFENesin ER [Mucinex ER] 600 mg PO BID #20 tablet 11/08/20 Unknown Rx hydroCHLOROthiazide [HCTZ] 25 mg PO QDAY #30 tablet 11/08/20 Unknown Rx Ketorolac [Toradol] 10 mg PO Q6H PRN #20 tablet 02/11/21 Unknown Rx Tramadol HCl/Acetaminophen 1 each PO Q4HR #12 tablet 02/11/21 Unknown Rx [Ultracet Tablet] ED Review of Systems ROS: Stated complaint: chest pain Other details as noted in HPI Comment: All other systems reviewed and negative Constitutional: denies: chills, fever Eyes: denies: eye pain, vision change ENT: denies: throat pain, congestion Respiratory: shortness of breath (with chest pain). denies: cough Cardiovascular: chest pain, edema. denies: palpitations, syncope Gastrointestinal: denies: abdominal pain, nausea, vomiting, diarrhea Genitourinary: denies: dysuria, frequency Musculoskeletal: joint swelling (Right knee, chronic). denies: back pain Skin: denies: rash, lesions Neurological: denies: headache, weakness, numbness, paresthesias Psychiatric: denies: anxiety, depression Physical Exam - Physical Exam Vital Signs: Vital Signs 04/01/21 15:02 Temperature 97.2 F L Pulse Rate 79 Respiratory 18 Rate Blood Pressure 131/82 [Right] O2 Sat by Pulse 100 Oximetry Physical Exam: GENERAL: Well developed and well nourished. No acute distress HEAD: Normocephalic. No obvious signs of trauma. ENT: Moist mucous membranes. EYES: Extraocular movements are intact. Pupils are equal round and reactive to light bilaterally NECK: Supple. Full ROM is intact. Trachea is midline. LUNGS: Nonlabored breathing. Equal chest rise bilaterally. Clear to auscultation bilaterally. CARDIOVASCULAR: Regular rate and rhythm. No murmurs or rubs. VASCULAR: Cap refill < 2 seconds ABDOMEN: Abdomen is soft and nondistended. There is no significant tenderness, guarding or rebound. SKIN: Skin is warm and dry NEURO: Patient is awake, alert, and oriented. light adjuster II-XII grossly intact. No focal deficits. Normal motor and sensory exam throughout. Normal speech. MUSCULOSKELETAL: There is moderate swelling noted of the right knee with 2+ edema of the right leg. No overlying or bony/point tenderness. No varus/valgus or anterior/posterior laxity. Compartments are soft. Range of motion somewhat limited by pain and swelling. Otherwise normal throughout. BACK/SPINE: No midline tenderness or step-offs of the C/T/L spine. No costovertebral angle tenderness. ED Course Vital Signs 04/01/21 15:02 Temperature 97.2 F L Pulse Rate 79 Respiratory 18 Rate Blood Pressure 131/82 [Right] O2 Sat by Pulse 100 Oximetry ED Medical Decision Making - Lab Data Result diagrams: 04/01/21 17:03 04/01/21 17:03 Lab Results 04/01/21 04/01/21 04/01/21 Range/Units 17: 17: 17:03 WBC 5.2 (4.5-11.0) K/mm3 RBC 4.02 (3.65-5.03) M/mm3 Hgb 9.8 L (10.1-14.3) gm/dl Hct 30.9 (30.3-42.9) % MCV 77 L (79-97) fl MCH 24 L (28-32) pg MCHC 32 (30-34) % RDW 17.4 H (13.2-15.2) % Plt Count 431 (140-440) K/mm3 Baso % (Auto) Sanitary Engineering Teacher Add Manual Diff Complete Total Counted 100 Seg Neuts % (Manual) 77.0 H (40.0-70.0) % Band Neutrophils % 2.0 % Lymphocytes % (Manual) 14.0 (13.4-35.0) % Reactive Lymphs % (Man) 0 % Monocytes % (Manual) 4.0 (0.0-7.3) % Eosinophils % (Manual) 3.0 (0.0-4.3) % Basophils % (Manual) 0 (0.0-1.8) % Metamyelocytes % 0 % Myelocytes % 0 % Promyelocytes % 0 % Blast Cells % 0 % Nucleated RBC % Not Reportable Seg Neutrophils # Man 4.0 (1.8-7.7) K/mm3 Band Neutrophils # 0.1 K/mm3 Lymphocytes # (Manual) 0.7 L (1.2-5.4) K/mm3 Abs React Lymphs (Man) 0.0 K/mm3 Monocytes # (Manual) 0.2 (0.0-0.8) K/mm3 Eosinophils # (Manual) 0.2 (0.0-0.4) K/mm3 Basophils # (Manual) 0.0 (0.0-0.1) K/mm3 Metamyelocytes # 0.0 K/mm3 Myelocytes # 0.0 K/mm3 Promyelocytes # 0.0 K/mm3 Blast Cells # 0.0 K/mm3 WBC Morphology Not Reportable Hypersegmented Neuts Not Reportable Hyposegmented Neuts Not Reportable Hypogranular Neuts Not Reportable Smudge Cells Not Reportable Toxic Granulation Not Reportable Toxic Vacuolation Not Reportable Dohle Bodies Not Reportable Pelger-Huet Anomaly Not Reportable Flori Rods Not Reportable Platelet Estimate Consistent w auto Clumped Platelets Not Reportable Plt Clumps, EDTA Not Reportable Large Platelets Not Reportable Giant Platelets Not Reportable Platelet Satelliting Not Reportable Plt Morphology Comment Not Reportable RBC Morphology Not Reportable Dimorphic RBCs Not Reportable Polychromasia Not Reportable Hypochromasia 1+ Poikilocytosis Not Reportable Anisocytosis Not Reportable Microcytosis Not Reportable Macrocytosis Not Reportable Spherocytes Not Reportable Pappenheimer Bodies Not Reportable Sickle Cells Not Reportable Target Cells Not Reportable Tear Drop Cells Not Reportable Ovalocytes Not Reportable Helmet Cells Not Reportable [place] Bodies Not Reportable [place] Rings Not Reportable [place] Cells Not Reportable Bite Cells Not Reportable Crenated Cell Not Reportable Elliptocytes Not Reportable Acanthocytes (Spur) Not Reportable Rouleaux Not Reportable Hemoglobin C Crystals Not Reportable Schistocytes Not Reportable Malaria parasites Not Reportable Dimitrios Bodies Not Reportable Hem Pathologist Commnt No Sodium 142 (137-145) mmol/L Potassium 3.2 L (3.6-5.0) mmol/L Chloride 103.1 (98-107) mmol/L Carbon Dioxide 26 (22-30) mmol/L Anion Gap 16 mmol/L BUN 15 (7-17) mg/dL Creatinine 1.0 (0.6-1.2) mg/dL Estimated GFR > 60 ml/min BUN/Creatinine Ratio 15 % Glucose 99 (65-100) mg/dL Calcium 10.2 (8.4-10.2) mg/dL Total Bilirubin 0.40 (0.1-1.2) mg/dL AST 17 (5-40) units/L ALT 11 (7-56) units/L Alkaline Phosphatase 66 (35-129) units/L Troponin T < 0.010 (0.00-0.029) ng/mL Total Protein 7.2 (6.3-8.2) g/dL Albumin 4.3 (3.9-5) g/dL Albumin/Globulin Ratio 1.5 % HCG, Qual Negative (Negative) 04/01/21 Range/Units 18:31 WBC (4.5-11.0) K/mm3 RBC (3.65-5.03) M/mm3 Hgb (10.1-14.3) gm/dl Hct (30.3-42.9) % MCV (79-97) fl MCH (28-32) pg MCHC (30-34) % RDW (13.2-15.2) % Plt Count (140-440) K/mm3 Baso % (Auto) Add Manual Diff Total Counted Seg Neuts % (Manual) (40.0-70.0) % Band Neutrophils % % Lymphocytes % (Manual) (13.4-35.0) % Reactive Lymphs % (Man) % Monocytes % (Manual) (0.0-7.3) % Eosinophils % (Manual) (0.0-4.3) % Basophils % (Manual) (0.0-1.8) % Metamyelocytes % % Myelocytes % % Promyelocytes % % Blast Cells % % Nucleated RBC % Seg Neutrophils # Man (1.8-7.7) K/mm3 Band Neutrophils # K/mm3 Lymphocytes # (Manual) (1.2-5.4) K/mm3 Abs React Lymphs (Man) K/mm3 Monocytes # (Manual) (0.0-0.8) K/mm3 Eosinophils # (Manual) (0.0-0.4) K/mm3 Basophils # (Manual) (0.0-0.1) K/mm3 Metamyelocytes # K/mm3 Myelocytes # K/mm3 Promyelocytes # K/mm3 Blast Cells # K/mm3 WBC Morphology Hypersegmented Neuts Hyposegmented Neuts Hypogranular Neuts Smudge Cells Toxic Granulation Toxic Vacuolation Dohle Bodies Pelger-Huet Anomaly Flori Rods Platelet Estimate Clumped Platelets Plt Clumps, EDTA Large Platelets Giant Platelets Platelet Satelliting Plt Morphology Comment RBC Morphology Dimorphic RBCs Polychromasia Hypochromasia Poikilocytosis Anisocytosis Microcytosis Macrocytosis Spherocytes Pappenheimer Bodies Sickle Cells Target Cells Tear Drop Cells Ovalocytes Helmet Cells Madrigal-[place] Bodies [place] Rings Kaylen Cells Bite Cells Crenated Cell Elliptocytes Acanthocytes (Spur) Rouleaux Hemoglobin C Crystals Schistocytes Malaria parasites Dimitrios Bodies Hem Pathologist Commnt Sodium (137-145) mmol/L Potassium (3.6-5.0) mmol/L Chloride (98-107) mmol/L Carbon Dioxide (22-30) mmol/L Anion Gap mmol/L BUN (7-17) mg/dL Creatinine (0.6-1.2) mg/dL Estimated GFR ml/min BUN/Creatinine Ratio % Glucose (65-100) mg/dL Calcium (8.4-10.2) mg/dL Total Bilirubin (0.1-1.2) mg/dL AST (5-40) units/L ALT (7-56) units/L Alkaline Phosphatase (35-129) units/L Troponin T < 0.010 (0.00-0.029) ng/mL Total Protein (6.3-8.2) g/dL Albumin (3.9-5) g/dL Albumin/Globulin Ratio % HCG, Qual (Negative) - EKG Data -: EKG Interpreted by Mn - EKG Data 04/01/21 19:01 Normal sinus rhythm. Normal axis. Normal intervals. No ectopy. Nonspecific T wave inversions. No significant ST segment abnormalities - Radiology Data Radiology results: report reviewed - Medical Decision Making 50-year-old female here with an episode of left-sided chest pain which was nonradiating and associated with some shortness of breath which occurred while in the shower earlier today. Resolved spontaneously when she was getting into the ambulance. Also patient reports pain and swelling in her right knee which is chronic and ongoing for several months. She has arthritis in that knee and has had prior surgery on that side. She follows with an orthopedist for this issue. She is afebrile and with normal vital signs. Physical examination reveals clear lung herrera bilaterally and normal heart sounds. There is moderate swelling noted of the right knee with swelling tracking into the leg resulting in 2+ edema of the right lower extremity. The remainder of her physical exam is grossly within normal limits. During the examination, the patient reported brief return of her chest pain and EKG was immediately performed at this time. EKG shows no ischemic changes. We will perform broad work-up with a full set of labs including troponin x2. We will also obtain duplex ultrasound of the right lower extremity to assess for evidence of DVT. We will give full-strength aspirin and follow closely. Patient's chest pain resolved within a few seconds. On repeat assessment, patient remains asymptomatic and chest pain-free. Chest x-ray reveals no acute abnormalities. Labs reveal no significant leukocytosis. There is anemia with hemoglobin of 9.8. Kidney function is normal. There is hypokalemia with potassium of 3.2. We will give potassium repletion. Troponin is negative. The patient's heart score is 3. Ultrasound of the right lower extremity reveals no evidence of DVT or Urbina's cyst. Repeat troponin is negative. Patient reports feeling completely better and want s to be discharged home. She was given instructions to follow-up with cardiology within the next several days. She will return for any recurrent or worsening symptoms or any new health concerns. I advised the patient to take 81 mg of aspirin daily Critical care attestation.: If time is entered above; I have spent that time in minutes in the direct care of this critically ill patient, excluding procedure time. ED Disposition Clinical Impression: Hypokalemia, Chest pain, Swelling of right knee joint Disposition: 01 HOME / SELF CARE / HOMELESS Is pt being admited?: No Condition: Stable Instructions: Hypokalemia, Nonspecific Chest Pain, Adult, Chest Wall Pain Additional Instructions: Please follow-up with a vehicle mechanic as soon as possible. Return to the emergency department for any worsening symptoms or new health concerns. Referrals: MAGGIE GAMA MD [Staff Physician] - 3-5 Days EVERARDO SCHMIDT MD [Primary Care Provider] - 3-5 Days Heart Score - HEART Score History: Slightly suspicious EKG: Non-specific Age: 45-65 Risk factors: 1-2 risk factors Troponin: < normal limit HEART Score: 3 - EKG Read Time Time EKG Completed: 16:55 EKG Read Time: 16:58
[2021-04-01 17:13] LABS: Hematocrit 30.9 % (30.3-42.9); Hemoglobin 9.8 gm/dl (10.1-14.3); Mean Corpuscular HGB Conc 32 % (30-34); Mean Corpuscular Volume 77 fl (79-97); Platelet Count 431 K/mm3 (140-440); Red Blood Count 4.02 M/mm3 (3.65-5.03); Red Cell Distribution Width 17.4 % (13.2-15.2)
[2021-04-01 17:38] LABS: Alanine Aminotransferase 11 units/L (7-56); Albumin 4.3 g/dL (3.9-5); BUN/Creatinine Ratio 15; Blood Urea Nitrogen 15 mg/dL (7-17); Calcium 10.2 mg/dL (8.4-10.2); Hemolysis Index 1
[2021-04-01] MEDS ORDERED: POTASSIUM CHLORIDE ER 20 MEQ TAB PO ONE (18:14)
[2021-04-01 19:03] LABS: Band Neutrophils # (Manual) 0.1 K/mm3; Basophils % (Manual) 0 % (0.0-1.8); Hypochromasia 1+; Platelet Estimate Consistent w Auto; Total Cells Counted 100
--- NOTE | 2021-04-01 19:11 | Vascular Lab Report ---
VL venous duplex LE RT INDICATION: swelling, assess for cardona cyst. COMPARISON: None available. FINDINGS: No popliteal cyst is identified. Visualized veins appear patent. Signer Name: Len Bangura MD Signed: 04/01/2021 7:07 PM Workstation Name: [id number]
--- NOTE | 2021-04-02 07:14 | Ultrasound Report ---
VL venous duplex LE RT INDICATION: swelling, assess for cardona cyst. COMPARISON: None available. FINDINGS: No popliteal cyst is identified. Visualized veins appear patent. Signer Name: Len Bangura MD Signed: 04/01/2021 7:07 PM Workstation Name: [id number]
--- NOTE | 2021-04-02 14:40 | Electrocardiograph Report ---
[facility] Test Date: 2021-04-01 Test Time: 16:55:09 Pat Name: KANDY Patiñopartment: Room: Gender: F Saturator Tender: AUGUSTIN : 1970 Requested By: WYATT HERRERA Order Number: [id number] Reading MD: Jax Barnes Measurements Intervals [place] Rate: 75 P: -2 AL: 172 QRS: 22 QRSD: 112 T: 0 QT: 386 QTc: 433 Interpretive Statements Sinus rhythm Possible inferior infarct, old Compared to ECG 10/26/2020 18:22:52 No significant change Electronically Signed On 04-02-2021 14:40:35 EST by Jax Barnes
== END 2021-04-01 19:55 | disposition home or self-care (01) ==
LOC: ED 15:01
DX: R07.89 Other chest pain (principal); M25.461 Effusion, right knee; E87.6 Hypokalemia; I10 Essential (primary) hypertension; J45.909 Unspecified asthma, uncomplicated; G43.909 Migraine, unspecified, not intractable, without status migrainosus; Z98.890 Other specified postprocedural states; Z87.891 Personal history of nicotine dependence
CPT/HCPCS: 36415; 71046; 80053; 84484; 84703; 85007; 85025; 93005; 93010; 99285

== ENCOUNTER 2021-08-30 06:53 | Emergency (ER) | payer MEDICARE ==
[2021-08-30] MEDS ORDERED: CYCLOBENZAPRINE 10 MG TAB PO ONE (09:01)
[2021-08-30] MEDS ORDERED: KETOROLAC 30 MG/1 ML INJ IM ONE (09:01)
--- NOTE | 2021-08-30 09:21 | Emergency Department Report ---
ED Extremity Problem HPI - General Chief complaint: Extremity Injury, Upper Stated complaint: SHOULDER PAIN Time Seen by Provider: 08/30/21 07:29 Source: patient Mode of arrival: Ambulatory Limitations: No Limitations - History of Present Illness Initial comments: 50-year-old black female with a past medical history of hypertension presents to the emergency department for evaluation of right axillary pain. She states that over the last 2 days, she has type feeling to her right arm and right axillary area. She states that pain is intermittent and worse with movement. She states that it feels like something is just pulling it and it just goes away. She states that she has not taken any medications for symptoms. She denies chest pain, shortness of breath, nausea, vomiting, dizziness, and diaphoresis. She states that her pain is 10 out of 10. MD Complaint: extremity pain -: Gradual, days(s) (2) Location: right, upper extremity (Posterior arm and axillary area) History of Same: No -: No myalgia, No arthralgia, No fever, No associated dyspnea, No associated chest pain Radiation: none Severity scale (0 -10): 10 Quality: aching, other (Cramping) Consistency: intermittent Worsens with: other (Movement) Associated Symptoms: denies: chest pain, shortness of breath, fever, myalgias, arthralgias, rash - Related Data Home Medications Medication Instructions Recorded Confirmed Last Taken Vitamin C 1,000 mg PO DAILY 10/28/19 11/02/20 11/06/19 Previous Rx's Medication Instructions Recorded Last Taken Type Ascorbic Acid [Vitamin C] 1,000 mg PO BID #60 tablet 11/08/20 Unknown Rx Cholecalciferol (Vitamin D3) 5,000 unit PO DAILY #30 tablet 11/08/20 Unknown Rx [Vitamin D3] Losartan [Cozaar] 100 mg PO QDAY #30 tablet 11/08/20 Unknown Rx Zinc Sulfate 220 mg PO BID #60 capsule 11/08/20 Unknown Rx amLODIPine 10 mg PO DAILY #30 11/08/20 Unknown Rx cloNIDine-TTS PATCH [Catapres-Tts 0.2 mg TD Tu@1200 #30 patch 11/08/20 Unknown Rx 0.2mg Patch] guaiFENesin ER [Mucinex ER] 600 mg PO BID #20 tablet 11/08/20 Unknown Rx hydroCHLOROthiazide [HCTZ] 25 mg PO QDAY #30 tablet 11/08/20 Unknown Rx Ketorolac [Toradol] 10 mg PO Q6H PRN #20 tablet 02/11/21 Unknown Rx Tramadol HCl/Acetaminophen 1 each PO Q4HR #12 tablet 02/11/21 Unknown Rx [Ultracet Tablet] Cyclobenzaprine [Flexeril] 10 mg PO TID PRN #30 tab 08/30/21 Unknown Rx Naproxen [Naprosyn] 500 mg PO BID PRN #30 tab 08/30/21 Unknown Rx Allergies Allergy/AdvReac Type Severity Reaction Status Date / Time No Known Allergies Allergy Verified 04/01/21 15:05 ED Review of Systems ROS: Stated complaint: SHOULDER PAIN Other details as noted in HPI Comment: All other systems reviewed and negative Constitutional: denies: chills, fever Eyes: denies: eye discharge Respiratory: denies: shortness of breath Cardiovascular: denies: chest pain, palpitations Gastrointestinal: denies: abdominal pain, nausea, vomiting Musculoskeletal: denies: back pain Neurological: denies: headache, weakness ED Past Medical Hx - Past Medical History Hx Hypertension: Yes Hx Heart Attack/AMI: No Hx Congestive Heart Failure: No Hx Diabetes: No Hx GERD: No Hx Liver Disease: No Hx Sickle Cell Disease: No Hx Arthritis: Yes (RT KNEE PAIN ) Hx Headaches / Migraines: Yes Hx Kidney Stones: No Hx Asthma: (+2FS) Hx COPD: No Hx Tuberculosis: No Hx HIV: No Additional medical history: Multiple shoulder dislocations - Surgical History Hx Pacemaker: No Hx Internal Defibrillator: No Additional Surgical History: . shoulder surgery - Social History Smoking Status: Former Smoker - Medications Home Medications: Home Medications Medication Instructions Recorded Confirmed Last Taken Type Vitamin C 1,000 mg PO DAILY 10/28/19 11/02/20 11/06/19 History Ascorbic Acid [Vitamin C] 1,000 mg PO BID #60 tablet 11/08/20 Unknown Rx Cholecalciferol (Vitamin D3) 5,000 unit PO DAILY #30 tablet 11/08/20 Unknown Rx [Vitamin D3] Losartan [Cozaar] 100 mg PO QDAY #30 tablet 11/08/20 Unknown Rx Zinc Sulfate 220 mg PO BID #60 capsule 11/08/20 Unknown Rx amLODIPine 10 mg PO DAILY #30 11/08/20 Unknown Rx cloNIDine-TTS PATCH [Catapres-Tts 0.2 mg TD Tu@1200 #30 patch 11/08/20 Unknown Rx 0.2mg Patch] guaiFENesin ER [Mucinex ER] 600 mg PO BID #20 tablet 11/08/20 Unknown Rx hydroCHLOROthiazide [HCTZ] 25 mg PO QDAY #30 tablet 11/08/20 Unknown Rx Ketorolac [Toradol] 10 mg PO Q6H PRN #20 tablet 02/11/21 Unknown Rx Tramadol HCl/Acetaminophen 1 each PO Q4HR #12 tablet 02/11/21 Unknown Rx [Ultracet Tablet] Cyclobenzaprine [Flexeril] 10 mg PO TID PRN #30 tab 08/30/21 Unknown Rx Naproxen [Naprosyn] 500 mg PO BID PRN #30 tab 08/30/21 Unknown Rx ED Physical Exam - General Limitations: No Limitations General appearance: alert, in no apparent distress - Head Head exam: Present: atraumatic, normocephalic - Eye Eye exam: Present: normal appearance. Absent: conjunctival injection - Neck Neck exam: Present: normal inspection - Respiratory Respiratory exam: Present: normal lung sounds bilaterally. Absent: respiratory distress - Cardiovascular Cardiovascular Exam: Present: regular rate, normal heart sounds - GI/Abdominal GI/Abdominal exam: Present: soft, normal bowel sounds. Absent: distended, tenderness, guarding, rebound, rigid - Expanded Upper Extremity Exam Right Shoulder Exam: Present: normal inspection Upper Arm exam: Present: normal inspection, tenderness. Absent: full ROM (Patient states that she has pain in the axillary area when her arm is moved a certain way.), swelling, abrasion, laceration, ecchymosis, deformity, crepidus, dislocation, erythema Elbow exam: Present: normal inspection Forearm Wrist exam: Present: normal inspection Vascular: Present: normal capillary refill, radial pulse. Absent: vascular compromise, Pallo, pulse deficit radial art - Back Exam Back exam: Present: normal inspection, vertebral tenderness - Neurological Exam Neurological exam: Present: alert, oriented X3, normal gait - Psychiatric Psychiatric exam: Present: normal affect, normal mood - Skin Skin exam: Present: warm, dry, intact, normal color ED Course Vital Signs 08/30/21 07:02 Temperature 98.2 F Pulse Rate 77 Respiratory 18 Rate Blood Pressure 169/102 O2 Sat by Pulse 98 Oximetry ED Medical Decision Making - Medical Decision Making 50-year-old black female with a past medical history of hypertension presents to the emergency department for evaluation of right axillary pain. She states that over the last 2 days, she has type feeling to her right arm and right axillary area. She states that pain is intermittent and worse with movement. She states that it feels like something is just pulling it and it just goes away. She states that she has not taken any medications for symptoms. She denies chest pain, shortness of breath, nausea, vomiting, dizziness, and diaphoresis. She states that her pain is 10 out of 10. Physical exam unremarkable. Patient will be treated with anti-inflammatory and muscle relaxants and advised to follow-up with her primary care provider if no improvement or worsening symptoms. She is advised to return to the emergency department as needed. She verbalizes understanding of and agreement with plan of care. Critical care attestation.: If time is entered above; I have spent that time in minutes in the direct care of this critically ill patient, excluding procedure time. ED Disposition Clinical Impression: Cramp of muscle of right upper extremity Disposition: 01 HOME / SELF CARE / HOMELESS Is pt being admited?: No Does the pt Need Aspirin: No Condition: Stable Instructions: Muscle Cramps and Spasms, [id number] Additional Instructions: Take medications as prescribed. Follow-up with your primary care provider if no improvement or worsening symptoms. Return to the emergency department as needed. Prescriptions: Cyclobenzaprine [Flexeril] 10 mg PO TID PRN #30 tab PRN Reason: Muscle Spasm Naproxen [Naprosyn] 500 mg PO BID PRN #30 tab PRN Reason: Pain, Moderate (4-6) Referrals: NATALYA DURAN MD [Staff Physician] - 3-5 Days Time of Disposition: 09:22
[2021-08-30 09:29] VITALS: BP 138/96
== END 2021-08-30 09:39 | disposition home or self-care (01) ==
LOC: ED 06:53
DX: R25.2 Cramp and spasm (principal); I10 Essential (primary) hypertension; M17.11 Unilateral primary osteoarthritis, right knee; M24.411 Recurrent dislocation, right shoulder; G43.909 Migraine, unspecified, not intractable, without status migrainosus; Z98.890 Other specified postprocedural states; Z87.891 Personal history of nicotine dependence
CPT/HCPCS: 96372; 99282; J1885